=== PATIENT | male | born 1955 | race Caucasian/White ===

== ENCOUNTER 2017-07-05 13:04 | Day surgery (SDC) | payer BC ==
[~2017-07-05] VITALS: Ht 180.3 cm; Wt 101.2 kg
[~2017-07-05 13:04] MED LIST: VARE1TAB22 PO
[2017-07-05] MEDS ORDERED: LACTATED RINGERS 1,000 ML IV ONE (13:07)
[2017-07-05] MEDS ORDERED: LACTATED RINGERS 1,000 ML IV STA (13:12)
[2017-07-05 13:34] VITALS: BP 133/95
[2017-07-05] MEDS ORDERED: LIDOCAINE PF 2% 5 ML (XYLOCAINE) VIAL ONE (14:07)
[2017-07-05] MEDS ORDERED: PROPOFOL INJECTION 50 ML IV ONE (14:07)
--- NOTE | 2017-07-05 14:34 | Progress Note-Pre Operative ---
Pre-Operative Progress Note H&P Reviewed The H&P was reviewed, patient examined and no changes noted. Date Seen by Provider: Jul 05, 2017 Time Seen by Provider: 14:34 Date H&P Reviewed: Jul 05, 2017 Time H&P Reviewed: 14:34 Pre-Operative Diagnosis: screening colonoscopy DADA PHAM DO Jul 05, 2017 14:34
[2017-07-05] MEDS ORDERED: proPOfol 200 MG/20 ML (DIPRIVAN) VIAL IV ONE (14:40)
--- NOTE | 2017-07-05 15:19 | Progress Note-Post Operative ---
Post-Operative Progess Note Surgeon (s)/Mud Car Worker (s) Surgeon DADA PHAM DO Mud Car Worker: na Pre-Operative Diagnosis screening colonoscopy Post-Operative Diagnosis diverticulosis, sigmoid polyp x 2, rectal polyp x 1 Procedure & Operative Findings Date of Procedure 07/05/17 Procedure Performed/Findings colonoscopy with hot bx x 2 sigmoid and rectal x 1 Anesthesia Type per gas or water meter installer Estimated Blood Loss Estimated blood loss (mL): none Specimens/Packing Specimens Removed sigmoid x 2, rectal x1 DADA PHAM DO Jul 05, 2017 3:19 pm
[2017-07-05 15:20] VITALS: BP 123/82
--- NOTE | 2017-07-05 15:20 | Discharge Inst-Simple/Standard ---
Discharge Inst-Standard Patient Instructions/Follow Up Plan of Care/Instructions/FU: 2 weeks Messi Activity as Tolerated: Yes Discharge Diet: Regular Diet (high fiber) DADA PHAM DO Jul 05, 2017 3:20 pm
[2017-07-05 15:50] VITALS: BP 116/66
--- NOTE | 2017-07-06 00:53 | OPERATIVE REPORT ---
DATE OF SERVICE: 07/05/2017 PREOPERATIVE DIAGNOSIS: Screening colonoscopy. POSTOPERATIVE DIAGNOSES: Rectal polyp x1, sigmoid polyp x2 and diverticulosis. PROCEDURE: Colonoscopy with hot biopsy polypectomy x3. SURGEON: Dada Swenson DO ANESTHESIA: Per LOCKET MAKER. ESTIMATED BLOOD LOSS: None. COMPLICATIONS: None. INDICATIONS FOR PROCEDURE: The patient is a 61-year-old male needing screening colonoscopy. He understands risks and benefits of procedure and wished to proceed with the procedure. Consent was signed in the chart. DESCRIPTION OF PROCEDURE: The patient was taken to the endoscopy suite, placed in the left lateral recumbent position. Timeout was performed. Digital rectal exam was performed and there were no palpable polyps, masses or ulcerations. The scope was inserted into the rectum and advanced all the way to the cecum with minimal difficulty. Prep was adequate with irrigation and suction. The scope was then slowly retracted back. There were no polyps, masses or ulcerations within the cecum, ascending, transverse and descending colon. In the sigmoid colon, there was a moderate amount of diverticulosis present. There were 2 polyps, one slightly larger, close to 1 cm in size; this was biopsied and cauterized. The second polyp was right by it, which again hot biopsy polypectomy was performed. Scope was continued to be slowly retracted back into the rectum where it was also retroflexed noting a small polyp in the rectum, which hot biopsy polypectomy was performed. Scope was returned to its normal position, slowly withdrawn until completely removed. The patient tolerated procedure well without any complications. RECOMMENDATIONS: The patient recommended a high-fiber diet. The patient will need a repeat colonoscopy in 3 years to reevaluate. If he has any problems prior to that, he should be reevaluated at that time. The patient will follow up in 2 weeks in the office to discuss pathology results. Job ID: [id number] DocumentID: [id number] Dictated Date: 07/05/2017 15:23:16 Tectonophysicist Date: 07/06/2017 00:14:56 Dictated By: DADA SWENSON DO
== END 2017-07-05 15:55 | disposition home or self-care (01) ==
LOC: ENDO 13:04
PROVIDERS: ATTEND Surgery
DX: Z12.11 Encounter for screening for malignant neoplasm of colon (principal); D12.5 Benign neoplasm of sigmoid colon; K62.1 Rectal polyp; K57.30 Diverticulosis of large intestine without perforation or abscess without bleeding; F17.210 Nicotine dependence, cigarettes, uncomplicated; J43.8 Other emphysema; E66.9 Obesity, unspecified; Z68.31 Body mass index [BMI] 31.0-31.9, adult; Z79.899 Other long term (current) drug therapy
CPT/HCPCS: 88305

== ENCOUNTER 2017-11-13 19:01 | Emergency (ER) | payer BC ==
[~2017-11-13] VITALS: Ht 180.3 cm; Wt 101.2 kg
--- NOTE | 2017-11-13 20:08 | ED Chest Pain ---
General Chief Complaint: Chest Wall/Rib Pain Stated Complaint: COUGHING,CHEST PAIN Nursing Triage Note: patient reports working on his ceiling today then about 1400 having chest pain that is worse with stretching and taking a deep breathe Nursing Sepsis Screen: No Definite Risk Source: patient, family ( and daughter) Exam Limitations: no limitations History of Present Illness Date Seen by Provider: Nov 13, 2017 Time Seen by Provider: 19:57 Initial Comments Patient presents to the ER by private conveyance with a chief complaint he's been having chest pain started sometime this afternoon. Today he's been working overhead on a ceiling doing some vomiting. He says the repetitive exercise re- creates the pain. Raising his arms above his head re-creates her pain and he feels the pain when he pushes on his chest. The pain is located around the manubrium and bilaterally. It does not radiate anywhere he did not express any nausea sweats chills or numbness in his jaw. He does not have a history of primary coronary artery disease. Does not have any significant family history of coronary artery disease. He does not have diabetes, high blood pressure, hypercholesterolemia, hypothyroidism but he does smoke not every day but usually on average a pack a day. He has been following with his primary care doctor recently to have a CT scan of his chest looking at a nodule that was seen on chest x-ray months ago for surveillance but does not know the results of that yet. Chest pain and that she really started at about 2:00 this afternoon and has not really changed in character. Allergies and Home Medications Allergies Coded Allergies: No Known Drug Allergies (Unverified , 06/21/17) Home Medications Varenicline Tartrate 1 Mg Tablet, 1 MG PO DAILY, (Reported) Patient Home Medication List Home Medication List Reviewed: Yes Review of Systems Constitutional: No chills, No diaphoresis EENTM: No Ear Pain, No Mouth Pain Respiratory: Denies Cough, Denies Shortness of Air Cardiovascular: See HPI, Chest Pain, Denies Edema, Denies Syncope Gastrointestinal: Denies Constipated, Denies Diarrhea, Denies Nausea Genitourinary: Denies Burning, Denies Discharge Musculoskeletal: No back pain, No joint pain Skin: No pruritus, No rash Psychiatric/Neurological: Denies Headache, Denies Numbness Past Khrdhia-Syhisy-Wrnkpm Hx Patient Social History Alcohol Use: Denies Use Number of Drinks Today: AA Alcohol Beverage of Choice: Beer Recreational Drug Use: No Smoking Status: Former Smoker Type Used: Cigarettes Recent Foreign Travel: No Contact w/Someone Who Travel: No Recent Infectious Disease Expo: No Recent Hopitalizations: No Physical Abuse: No Sexual Abuse: No Immunizations Up To Date Tetanus Booster (TDap): Unknown PED Vaccines UTD: No Seasonal Allergies Seasonal Allergies: No Respiratory Respiratory Disorders: COPD Currently Using CPAP: No Currently Using BIPAP: No Reproductive System Hx Reproductive Disorders: No Sexually Transmitted Disease: No HIV/AIDS: No HEENT Loss of Vision: Denies Hearing Impairment: Denies Psychosocial Suicide Risk Score: 0 Physical Exam Vital Signs Vital Signs - First Documented 11/13/17 19:49 Pulse 78 Resp 18 B/P (MAP) 137/97 (110) Pulse Ox 92 O2 Delivery Room Air Capillary Refill : Less Than 3 Seconds General Appearance: No Apparent Distress, WD/WN HEENT: PERRL/EOMI, Normal ENT Inspection, Pharynx Normal Neck: Full Range of Motion, Non Tender, Supple Respiratory: Lungs Clear, Normal Breath Sounds, No Accessory Muscle Use, No Respiratory Distress, Other (chest pain reproducible by direct palpation over the anterior ribs and manubrium.) Cardiovascular: Regular Rate, Rhythm, No Edema, No Murmur, Normal Peripheral Pulses Gastrointestinal: Normal Bowel Sounds, Non Tender, Soft Neurologic/Psychiatric: Alert, Oriented x3 Skin: Normal Color, Warm/Dry Progress/Results/Core Measures Results/Orders Lab Results Laboratory Tests Test 11/13/17 20:22 Range/Units White Blood Count 7.8 4.3-11.0 10^3/uL Red Blood Count 5.04 4.35-5.85 10^6/uL Hemoglobin 15.3 13.3-17.7 G/DL Hematocrit 44 40-54 % Mean Corpuscular Volume 87 80-99 FL Mean Corpuscular Hemoglobin 30 25-34 PG Mean Corpuscular Hemoglobin Concent 35 32-36 G/DL Red Cell Distribution Width 13.3 10.0-14.5 % Platelet Count 248 130-400 10^3/uL Mean Platelet Volume 10.1 7.4-10.4 FL Neutrophils (%) (Auto) 53 42-75 % Lymphocytes (%) (Auto) 33 12-44 % Monocytes (%) (Auto) 10 0-12 % Eosinophils (%) (Auto) 4 0-10 % Basophils (%) (Auto) 1 0-10 % Neutrophils # (Auto) 4.1 1.8-7.8 X 10^3 Lymphocytes # (Auto) 2.6 1.0-4.0 X 10^3 Monocytes # (Auto) 0.8 0.0-1.0 X 10^3 Eosinophils # (Auto) 0.3 0.0-0.3 10^3/uL Basophils # (Auto) 0.1 0.0-0.1 10^3/uL Prothrombin Time 12.2 12.2-14.7 SEC INR Comment 0.9 0.8-1.4 Activated Partial Thromboplast Time 29 24-35 SEC Sodium Level 141 135-145 MMOL/L Potassium Level 3.8 3.6-5.0 MMOL/L Chloride Level 108 H 98-107 MMOL/L Carbon Dioxide Level 22 21-32 MMOL/L Anion Gap 11 5-14 MMOL/L Blood Urea Nitrogen 14 7-18 MG/DL Creatinine 0.81 0.60-1.30 MG/DL Estimat Glomerular Filtration Rate > 60 BUN/Creatinine Ratio 17 Glucose Level 162 H 70-105 MG/DL Calcium Level 8.9 8.5-10.1 MG/DL Magnesium Level 2.4 1.8-2.4 MG/DL Total Bilirubin 0.2 0.1-1.0 MG/DL Aspartate Amino Transf (AST/SGOT) 17 5-34 U/L Alanine Aminotransferase (ALT/SGPT) 23 0-55 U/L Alkaline Phosphatase 93 40-136 U/L Myoglobin 36.6 10.0-92.0 NG/ML Troponin I < 0.30 <0.30 NG/ML Total Protein 7.0 6.4-8.2 GM/DL Albumin 4.0 3.2-4.5 GM/DL My Orders Orders - LI,ALVIN J Cbc With Automated Diff (11/13/17 20:02) Magnesium (11/13/17 20:02) Ekg Tracing (11/13/17 20:02) Cardiac Profile 1 (11/13/17 20:02) Comprehensive Metabolic Panel (11/13/17 20:02) Myoglobin Serum (11/13/17 20:02) Protime With Inr (11/13/17 20:02) Partial Thromboplastin Time (11/13/17 20:02) O2 (11/13/17 20:02) Monitor-Rhythm Ecg Trace Only (11/13/17 20:02) Lipid Panel (11/14/17 06:00) Aspirin Chewable Tablet (Baby Aspirin Ch (11/13/17 20:15) Saline Lock/Iv-Start (11/13/17 20:02) Chest Pa/Lat (2 View) (11/13/17 20:02) Medications Given in ED Current Medications Medications Dose Ordered Sig/Tristen Route Start Time Stop Time Status Last Admin Dose Admin Aspirin 324 mg ONCE ONCE PO 11/13/17 20:15 11/13/17 20:16 DC 11/13/17 20:53 324 MG Vital Signs/I&O Vital Sign - Last 12Hours 11/13/17 11/13/17 19:49 19:49 Pulse 78 Resp 18 B/P (MAP) 137/97 (110) Pulse Ox 92 O2 Delivery Room Air Blood Pressure Mean: 110 Progress Note : Time: 20:07 Progress Note Appears to be musculoskeletal. Because of his age we'll give him some aspirin and do a chest pain workup review the results with cardiology and given a plan. If there is no evidence of acute IL we'll give him NSAIDs for his chest wall pain. ECG Initial ECG Impression Date: Nov 13, 2017 Initial ECG Impression Time: 19:51 Initial ECG Rate: 66 Initial ECG Rhythm: Normal Sinus Initial ECG Intervals: Normal Initial ECG Impression: Normal, Nonspecific Changes Initial ECG Comparisson: No Previous ECG Available Comment No ST segment elevation or depression. Diagnostic Imaging Diagonstic Imaging: Xray (2v) Plain Films/CT/US/NM/MRI: chest Comments VIA [facility]. [place], [place] NAME: MUSA TREVIÑO [facility] REC#: [id number] PT STATUS: REG ER : 1955 PHYSICIAN: ALVIN JEFFERSON MD ADMIT DATE: 11/13/17/ER Draft Date of Exam:11/13/17 CHEST PA/LAT (2 VIEW) EXAM: CHEST PA/LAT (2 VIEW) INDICATION: Chest pain. COMPARISON: None. FINDINGS: Normal heart size and pulmonary vascularity. Mild linear atelectasis or scarring in the lung bases. No dense consolidation, pleural effusion or pneumothorax. No acute osseous findings. IMPRESSION: Minimal atelectasis and/or scarring in the lung bases. Chest otherwise unremarkable. Dictated on workstation # [id number] Dict: 11/13/172029 Trans: 11/13/172032 [id number] Interpreted by: ESPERANZA TAYLOR MD Electronically signed by: Reviewed: Reviewed by Me Consults Consults : Consulting Physician: JANET FREEMAN MD [facility] Consults Notes Discussed case lab imaging EKG and findings. With the given history and workup so far he is willing to see the patient in the clinic tomorrow or Tuesday. Departure Impression Impression: Primary Impression: Acute chest wall pain Disposition: HOME, SELF-CARE Condition: Stable Departure-Patient Inst. Decision time for Depature: 21:19 Referrals: SARAH LEIGH MD (PCP) Primary Care Physician Patient Instructions: Chest Pain That Is Not Caused by the Heart (DC) Add. Discharge Instructions: Your initial workup does not show evidence of a heart attack. I would recommend you use ibuprofen 800 mg every 8 hours as needed for your chest wall discomfort. Follow-up with Dr. Barone by calling his office at [phone] tomorrow morning and requests an appointment tomorrow or the following day. He will help you make sure you're heart is okay in the clinic. If you have new or worrisome symptoms return to the ER. All discharge instructions reviewed with patient and/ or family. Voiced understanding. Copy Copies To 1: JANET FREEMAN MD [facility]; SARAH LEIGH MD, TITUS J Nov 13, 2017 20:08
[2017-11-13] MEDS ORDERED: ASPIRIN 81 MG CHEW (CHILDREN'S ASA) PO ONE (20:15)
[2017-11-13 20:30] LABS: BASOPHILS # (AUTO) 0.1 10^3/uL (0.0-0.1); BASOPHILS % (AUTO) 1 % (0-10); EOSINOPHILS # (AUTO) 0.3 10^3/uL (0.0-0.3); EOSINOPHILS % (AUTO) 4 % (0-10); HEMATOCRIT 44 % (40-54); HEMOGLOBIN 15.3 G/DL (13.3-17.7); LYMPHOCYTES # (AUTO) 2.6 X 10^3 (1.0-4.0); LYMPHOCYTES % (AUTO) 33 % (12-44); MEAN CORPUSCULAR HEMOGLOBIN 30 PG (25-34); MEAN CORPUSCULAR HGB CONC 35 G/DL (32-36); MEAN CORPUSCULAR VOLUME 87 FL (80-99); MEAN PLATELET VOLUME 10.1 FL (7.4-10.4); MONOCYTES # (AUTO) 0.8 X 10^3 (0.0-1.0); MONOCYTES % (AUTO) 10 % (0-12); NEUTROPHILS # (AUTO) 4.1 X 10^3 (1.8-7.8); NEUTROPHILS % (AUTO) 53 % (42-75); PLATELET COUNT 248 10^3/uL (130-400); RED BLOOD COUNT 5.04 10^6/uL (4.35-5.85); RED CELL DISTRIBUTION WIDTH 13.3 % (10.0-14.5); WHITE BLOOD COUNT 7.8 10^3/uL (4.3-11.0)
--- NOTE | 2017-11-13 20:34 | Diagnostic Imaging Report ---
EXAM: CHEST PA/LAT (2 VIEW) INDICATION: Chest pain. COMPARISON: None. FINDINGS: Normal heart size and pulmonary vascularity. Mild linear atelectasis or scarring in the lung bases. No dense consolidation, pleural effusion or pneumothorax. No acute osseous findings. IMPRESSION: Minimal atelectasis and/or scarring in the lung bases. Chest otherwise unremarkable. Dictated by: Dictated on workstation # [id number]
[2017-11-13 20:41] LABS: INR 0.9 (0.8-1.4); PROTHROMBIN TIME PATIENT 12.2 SEC (12.2-14.7)
[2017-11-13 20:51] LABS: ALANINE AMINOTRANSFERASE 23 U/L (0-55); ALKALINE PHOSPHATASE 93 U/L (40-136); BILIRUBIN,TOTAL 0.2 MG/DL (0.1-1.0); BUN/CREATININE RATIO 17; CALCIUM 8.9 MG/DL (8.5-10.1); CARBON DIOXIDE 22 MMOL/L (21-32); CHLORIDE 108 MMOL/L (98-107); CREATININE SERUM 0.81 MG/DL (0.60-1.30); GFR ESTIMATED > 60; GLUCOSE 162 MG/DL (70-105); MAGNESIUM 2.4 MG/DL (1.8-2.4); POTASSIUM 3.8 MMOL/L (3.6-5.0); SODIUM 141 MMOL/L (135-145)
[2017-11-13 20:58] LABS: MYOGLOBIN SERUM 36.6 NG/ML (10.0-92.0)
[2017-11-13 21:26] VITALS: BP 133/84
== END 2017-11-13 21:26 | disposition home or self-care (01) ==
LOC: EDUNIT# 19:01 → ER 19:03
DX: R07.89 Other chest pain (principal); J44.9 Chronic obstructive pulmonary disease, unspecified; Z87.891 Personal history of nicotine dependence
CPT/HCPCS: 36415; 71046; 80053; 83735; 83874; 84484; 85025; 85610; 85730; 93005; 93041

== ENCOUNTER → 2017-11-29 | Outpatient (CLI) | payer BC ==
[~2017-11-29] VITALS: Ht 180.3 cm; Wt 102.1 kg
[~2017-11-29] MED LIST changes: +CATHETER FLUSH 10 ML SYR IV PRN; +REGADENOSON 0.4 MG/5 ML SYR (LEXISCAN) IV ONE
[2017-11-29 10:05] VITALS: BP 134/81
[2017-11-29 10:08] VITALS: BP 138/94
--- NOTE | 2017-11-29 18:45 | STRESS TEST ---
DATE OF SERVICE: 11/29/2017 RESTING AND POST REGADENOSON TECHNETIUM-99M TETROFOSMIN SPECT CT IMAGING CLINICAL DIAGNOSIS: Chest discomfort. Baseline images were carried out after injection of 10.72 mCi technetium-99m Tetrofosmin. This was followed by 0.4 mg regadenoson and 31.5 mCi of technetium-99m Tetrofosmin for stress imaging. The electrocardiogram showed sinus rhythm at baseline and it did not change significantly with the regadenoson infusion. The patient noted some nausea and shortness of breath following regadenoson infusion, which resolved in a few minutes. Review of images at rest and following stress does not indicate any significant perfusion defects consistent with significant myocardial ischemia or infarction. Some degree of diaphragmatic attenuation is seen both at rest and following regadenoson infusion. Gated images show normal global left ventricular systolic function with normal regional wall motion, including the diaphragmatic wall of the left ventricle. Left ventricular ejection fraction is calculated to be 75%. Left ventricular end diastolic volume is 78 mL. TID is absent (1.06). CONCLUSIONS: 1. No evidence of any significant myocardial ischemia or infarction on this study. 2. Normal regional wall motion. 3. Normal global left ventricular systolic function with a calculated ejection fraction of 75%. 4. Normal left ventricular cavity size. Job ID: [id number] DocumentID: [id number] Dictated Date: 11/29/2017 17:20:57 Clinical Reimbursement Specialist Date: 11/29/2017 18:44:50 Dictated By: JANET FREEMAN MD, MA, FACP, FACC,
== END ==
LOC: CARD 11-22 07:30
PROVIDERS: ATTEND Internal Medicine Cardiovascular Disease
DX: R07.89 Other chest pain (principal); R06.02 Shortness of breath; E66.9 Obesity, unspecified; Z72.0 Tobacco use
CPT/HCPCS: 78452; 93017

== ENCOUNTER → 2017-12-14 | Outpatient (CLI) | payer BC ==
[~2017-12-14] MED LIST changes: -CATHETER FLUSH 10 ML SYR IV PRN; -REGADENOSON 0.4 MG/5 ML SYR (LEXISCAN) IV ONE
== END ==
LOC: CARD 11:16
PROVIDERS: ATTEND Internal Medicine Cardiovascular Disease
DX: R07.89 Other chest pain (principal); R06.02 Shortness of breath; E66.9 Obesity, unspecified; Z72.0 Tobacco use
CPT/HCPCS: 93306

== ENCOUNTER → 2019-01-29 | Outpatient (CLI) | payer OTHER ==
--- NOTE | 2019-01-29 14:48 | Diagnostic Imaging Report ---
CT CHEST SCREENING WO TECHNIQUE: Low-dose unenhanced CT of the chest was performed according to the screening protocol. Coronal MIP and sagittal MPR reformats are created. Automatic exposure controls were utilized to keep dose as low as reasonably achievable. INDICATION: 63-year-old current smoker with [id number] history of smoking. COMPARISON: None available. FINDINGS: Pulmonary findings: No endoluminal nodule within the trachea. No pulmonary mass or consolidation. 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 No indeterminate pulmonary nodules that would require further management at this time. Extrapulmonary findings: No axillary lymphadenopathy. No mediastinal, discrete hilar or juxtaphrenic lymphadenopathy. 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 Coronary artery calcifications are present. IMPRESSION: No worrisome focal osseous lesion. Lung-RADS category: 1 - Negative Recommendations: Continued annual screening with low-dose CT in 12 months. Dictated by: Dictated on workstation # [id number]
== END ==
LOC: RAD 12:45
PROVIDERS: ATTEND Family Medicine
DX: Z12.2 Encounter for screening for malignant neoplasm of respiratory organs (principal); F17.210 Nicotine dependence, cigarettes, uncomplicated

== ENCOUNTER 2020-02-21 20:32 | Emergency (ER) | payer OTHER ==
[~2020-02-21] VITALS: Ht 178 cm; Wt 99.1 kg
[2020-02-21] MEDS ORDERED: LIDOCAINE 1% INJ 20 ML 20 ML VIAL ONE (20:46)
--- NOTE | 2020-02-21 21:30 | ED Upper Extremity ---
General Chief Complaint: Laceration Stated Complaint: L HAND 5TH FINGER LAC Nursing Triage Note: laceration to left 3rd, 5th finger. Nursing Sepsis Screen: No Definite Risk Source: patient Exam Limitations: no limitations History of Present Illness Date Seen by Provider: Feb 21, 2020 Time Seen by Provider: 21:24 Initial Comments Heavy chain fell from a few feet up landing on his left hand prior to arrival. 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 He sustained a laceration to his left fifth and third fingers. Allergies and Home Medications Allergies Coded Allergies: No Known Drug Allergies (Unverified , 06/21/17) Home Medications Cephalexin 500 Mg Capsule, 500 MG PO TID Prescribed by: YENNY BEATTY on 02/21/202131 Patient Home Medication List Home Medication List Reviewed: Yes Review of Systems Constitutional: no symptoms reported Musculoskeletal: see HPI Skin: see HPI Past Igikumc-Wwwuca-Xyqqjh Hx Patient Social History Alcohol Use: Occasionally Uses Number of Drinks Today: AA Alcohol Beverage of Choice: Beer Recreational Drug Use: No Smoking Status: Current Everyday Smoker Type Used: Cigarettes 2nd Hand Smoke Exposure: Yes Recent Foreign Travel: No Contact w/Someone Who Travel: No Recent Infectious Disease Expo: No Recent Hopitalizations: No Physical Abuse: No Sexual Abuse: No Mistreated: No Fear: No Immunizations Up To Date Tetanus Booster (TDap): Less than 5yrs PED Vaccines UTD: No Seasonal Allergies Seasonal Allergies: No Past Medical History Surgeries: Yes (cyst removed from finger) Respiratory: Yes COPD Currently Using CPAP: No Currently Using BIPAP: No Cardiac: No Neurological: No Reproductive Disorders: No Sexually Transmitted Disease: No HIV/AIDS: No Genitourinary: No Gastrointestinal: No Musculoskeletal: No Endocrine: No HEENT: No Loss of Vision: Denies Hearing Impairment: Denies Cancer: No Psychosocial: No Integumentary: No Blood Disorders: No Physical Exam Vital Signs Vital Signs - First Documented 02/21/20 20:39 Temp 36.7 Pulse 91 Resp 18 B/P (MAP) 145/97 (113) Pulse Ox 94 O2 Delivery Room Air Capillary Refill : Less Than 3 Seconds Height, Weight, BMI Height: 5'11.00" Weight: 225lbs. 0.0oz. 102.067980xx; 31.00 BMI Method:Stated General Appearance: WD/WN, no apparent distress Cardiovascular: regular rate, rhythm Respiratory: decreased breath sounds Hand: laceration (there is a 20 laceration across the dorsum of his left third middle phalanx. There is a larger (3.5 cm) laceration along the lateral aspect of the distal phalanx of the left fifth finger this extends to the nail and the nail was avulsed from the nail bed.) Procedures/Interventions Wound Location: Upper Extremities Other Wound Location Left fifth finger Wound Length (cm): 3.5 Wound's Depth, Shape: nail-avulsed, sub Q Anesthesia: 1% Lidocaine Volume Anesthetic (ccs): 8 Wound Debrided: minimal Suture: Ethlion Suture Size: 5-0 Number of Sutures: 5 Progress Proximal nail was secured under the eponychium with 5-0 nylon horizontal mattress suture.. The rest of the laceration was closed with 5-0 nylon simple interrupted. Patient refused suturing of his middle finger. He says he would take a Band- Aid. He understands that there is risk for infection and delayed healing. He still refused to have it done. Progress/Results/Core Measures Results/Orders My Orders Orders - YENNY BEATTY MD Finger(S) (02/21/20 21:22) Cephalexin Capsule (Keflex Capsule) (02/21/20 21:45) Wound Dressing-Ed (02/21/20 21:38) Medications Given in ED Current Medications Medications Dose Ordered Sig/Tristen Route Start Time Stop Time Status Last Admin Dose Admin Lidocaine HCl 20 ml STK-MED ONCE .ROUTE 02/21/20 20:46 02/21/20 20:49 DC 02/21/20 20:51 20 ML Vital Signs/I&O 02/21/20 20:39 Temp 36.7 Pulse 91 Resp 18 B/P (MAP) 145/97 (113) Pulse Ox 94 O2 Delivery Room Air Blood Pressure Mean: 113 Progress Progress Note : Time: 21:35 Progress Note X-ray shows fracture of the tip of the distal phalanx. This is an open fracture. He was given Keflex and written a prescription for Keflex. Wound was cleaned out well with soap and water. Finger was dressed and splinted. Departure Impression Primary Impression: Laceration of finger of left hand without foreign body with damage to nail Disposition: 01 HOME, SELF-CARE Condition: Stable Departure-Patient Inst. Decision time for Depature: 21:43 Referrals: SARAH LEIGH MD (PCP/Family) Primary Care Physician Patient Instructions: Laceration Repair With Stitches (DC) Add. Discharge Instructions: Keep hand elevated. Daily dressing changes. Sutures out in 14 days. Take antibiotics as prescribed. All discharge instructions reviewed with patient and/or family. Voiced understanding. Scripts Cephalexin (Keflex) 500 Mg Capsule 500 MG PO TID, #6 CAP Prov: YENNY BEATTY MD 02/21/20 YENNY BEATTY MD Feb 21, 2020 21:30
[2020-02-21] MEDS ORDERED: CEPH-507 PO (21:32)
[2020-02-21] MEDS ORDERED: CEPHALEXIN 250 MG (KEFLEX) CAP PO ONE (21:45)
[2020-02-21 21:52] VITALS: BP 139/80
--- NOTE | 2020-02-21 21:53 | Diagnostic Imaging Report ---
INDICATION: Lacerations. COMPARISON: None. TECHNIQUE: Three radiographs of the left hand dated February 21, 2020. FINDINGS: Acute fracturing involving the tuft of the 5th digit distal phalanx is present. Fracture is not significantly displaced. No additional acute fracture. No dislocation. No suspicious radiopaque foreign body. Mild scattered degenerative changes. Carpal alignment is well maintained. IMPRESSION: 1. Acute transversely oriented essentially non-displaced fracture involving the tuft of the 5th digit distal phalanx. 2. Mild scattered degenerative changes. Dictated by: Dictated on workstation # [id number]
--- OUTSIDE RECORDS SUMMARY | 2020-02-21 22:03 | XMS REPORT | Continuity of Care Document ---
Author Organization Unknown Address Unknown Phone Unavailable Allergies Active Description Code Type Severity Reaction Onset Reported/Identified Relationship to Patient Clinical Status Yes No Known Drug Allergies [id number] Drug Allergy Unknown N/A 06/21/2017 Medications There is no data. Problems Date Dx Coded Attending Type Code Diagnosis Diagnosed By 06/21/2017 DADA PHAM DO Ot Z01.818 ENCOUNTER FOR OTHER PREPROCEDURAL EXAMIN 06/21/2017 DADA PHAM DO Ot Z12. 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 9 OBESITY, UNSPECIFIED 07/05/2017 DADA PHAM DO Ot F17.210 NICOTINE DEPENDENCE, CIGARETTES, UNCOMPL 07/05/2017 DADA PHAM DO Ot J43. 8 OTHER EMPHYSEMA 07/05/2017 DADA PHAM DO Ot K57. 30 DVRTCLOS OF LG INT W/O PERFORATION OR AB 07/05/2017 DADA PHAM DO Ot K62. 1 RECTAL POLYP 07/05/2017 DADA PHAM DO Ot Z12. 11 ENCOUNTER FOR SCREENING FOR MALIGNANT NE 07/05/2017 DADA PHAM DO Ot Z68. 31 BODY MASS INDEX (BMI) 31.0-31.9, ADULT 07/05/2017 DADA PHAM DO Ot Z79.899 OTHER ASSISTED (CURRENT) DRUG THERAPY 07/18/2017 DADA PHAM DO Ot D12. 5 BENIGN NEOPLASM OF SIGMOID COLON 07/18/2017 DADA PHAM DO Ot E66. 9 OBESITY, UNSPECIFIED 07/18/2017 DADA PHAM DO Ot F17.210 NICOTINE DEPENDENCE, CIGARETTES, UNCOMPL 07/18/2017 DADA PHAM DO Ot J43. 8 OTHER EMPHYSEMA 07/18/2017 DADA PHAM DO Ot K57. 30 DVRTCLOS OF LG INT W/O PERFORATION OR AB 07/18/2017 DADA PHAM DO Ot K62. 1 RECTAL POLYP 07/18/2017 DADA PHAM DO Ot Z12. 11 ENCOUNTER FOR SCREENING FOR MALIGNANT NE 07/18/2017 DADA PHAM DO Ot Z68. 31 BODY MASS INDEX (BMI) 31.0-31.9, ADULT 07/18/2017 DADA PHAM DO Ot Z79.899 OTHER ASSISTED (CURRENT) DRUG THERAPY 11/13/2017 ABRAHAM JEFFERSON MDUS J Ot J44. 9 CHRONIC OBSTRUCTIVE PULMONARY DISEASE, U 11/13/2017 LI RIOS ALVIN J Ot R07. 89 OTHER CHEST PAIN 11/13/2017 ABRAHAM JEFFERSON MDUS J Ot Z87.891 PERSONAL HISTORY OF NICOTINE DEPENDENCE 11/15/2017 ALVIN JEFFERSON MD J Ot J44. 9 CHRONIC OBSTRUCTIVE PULMONARY DISEASE, U 11/15/2017 ABRAHAM JEFFERSON MDUS J Ot R07. 89 OTHER CHEST PAIN 11/15/2017 ABRAHAM JEFFERSON MDUS J Ot Z87.891 PERSONAL HISTORY OF NICOTINE DEPENDENCE 11/30/2017 PETE RIOS FACC, ALI FACP CCDS Ot E66.9 OBESITY, UNSPECIFIED 11/30/2017 PETE RIOS FACC, ALI FACP CCDS Ot R06.02 SHORTNESS OF BREATH 11/30/2017 PETE RIOS FACC, ALI FACP CCDS Ot R07.89 OTHER CHEST PAIN 11/30/2017 PETE RIOS FACC, ALI FACP CCDS Ot Z72.0 TOBACCO USE 12/14/2017 PETE RIOS FACC, ALI FACP CCDS Ot E66.9 OBESITY, UNSPECIFIED 12/14/2017 PETE RIOS FACC, ALI FACP CCDS Ot R06.02 SHORTNESS OF BREATH 12/14/2017 PETE RIOS FACC, ALI FACP CCDS Ot R07.89 OTHER CHEST PAIN 12/14/2017 PETE RIOS FACC, ALI FACP CCDS Ot Z72.0 TOBACCO USE 12/14/2017 PETE RIOS FACC, ALI FACP CCDS Ot E66.9 OBESITY, UNSPECIFIED 12/14/2017 PETE RIOS FACC, ALI FACP CCDS Ot R06.02 SHORTNESS OF BREATH 12/14/2017 PETE MD FACC, ALI FACP CCDS Ot R07.89 OTHER CHEST PAIN 12/14/2017 PETE RIOS FACC, ALI FACP CCDS Ot Z72.0 TOBACCO USE 12/15/2017 PETE RIOS FACC, ALI FACP CCDS Ot E66.9 OBESITY, UNSPECIFIED 12/15/2017 PETE RIOS FACC, ALI FACP CCDS Ot R06.02 SHORTNESS OF BREATH 12/15/2017 PETE RIOS FACC, ALI FACP CCDS Ot R07.89 OTHER CHEST PAIN 12/15/2017 PETE RIOS FACC, ALI FACP CCDS Ot Z72.0 TOBACCO USE 01/26/2018 PETE RIOS FACC, ALI FACP CCDS Ot E66.9 OBESITY, UNSPECIFIED 01/26/2018 PETE RIOS FACC, ALI FACP CCDS Ot R06.02 SHORTNESS OF BREATH 01/26/2018 PETE RIOS FACC, ALI FACP CCDS Ot R07.89 OTHER CHEST PAIN 01/26/2018 PETE RIOS FACC, ALI FACP CCDS Ot Z72.0 TOBACCO USE 01/26/2018 PETE RIOS FACC, ALI FACP CCDS Ot E66.9 OBESITY, UNSPECIFIED 01/26/2018 PETE RIOS FACC, ALI FACP CCDS Ot R06.02 SHORTNESS OF BREATH 01/26/2018 PETE RIOS FACC, ALI FACP CCDS Ot R07.89 OTHER CHEST PAIN 01/26/2018 PETE SILVESTREC, ALI FACP CCDS Ot Z72.0 TOBACCO USE 11/08/2018 PETE SILVESTREC, ALI FACP CCDS Ot E66.9 OBESITY, UNSPECIFIED 11/08/2018 PETE RIOS FACC, ALI FACP CCDS Ot R06.02 SHORTNESS OF BREATH 11/08/2018 PETE RIOS FACC, ALI FACP CCDS Ot R07.89 OTHER CHEST PAIN 11/08/2018 PETE RIOS FACC, ALI FACP CCDS Ot Z72.0 TOBACCO USE 11/08/2018 PETE RIOS FACC, ALI FACP CCDS Ot E66.9 OBESITY, UNSPECIFIED 11/08/2018 PETE RIOS FACC, ALI FACP CCDS Ot R06.02 SHORTNESS OF BREATH 11/08/2018 PETE RIOS FACC, ALI FACP CCDS Ot R07.89 OTHER CHEST PAIN 11/08/2018 PETE MD FACC, ALI FACP CCDS Ot Z72.0 TOBACCO USE 01/29/2019 PETE MD FACC, ALI FACP CCDS Ot E66.9 OBESITY, UNSPECIFIED 01/29/2019 PETE MD FACC, ALI FACP CCDS Ot R06.02 SHORTNESS OF BREATH 01/29/2019 PETE MD FACC, ALI FACP CCDS Ot R07.89 OTHER CHEST PAIN 01/29/2019 PETE MD FACC, ALI FACP CCDS Ot Z72.0 TOBACCO USE 01/29/2019 PETE MD FACC, ALI FACP CCDS Ot E66.9 OBESITY, UNSPECIFIED 01/29/2019 PETE MD FACC, ALI FACP CCDS Ot R06.02 SHORTNESS OF BREATH 01/29/2019 PETE MD FACC, ALI FACP CCDS Ot R07.89 OTHER CHEST PAIN 01/29/2019 PETE MD FACC, ALI FACP CCDS Ot Z72.0 TOBACCO USE 01/31/2019 SARAH LEIGH MD R Ot F17.210 NICOTINE DEPENDENCE, CIGARETTES, UNCOMPL 01/31/2019 SARAH LEIGH MD R Ot Z12. 2 ENCNTR SCREEN FOR MALIGNANT NEOPLASM OF Procedures There is no data. Results Test Result Range Complete blood count (CBC) with automate d white blood cell (WBC) differential - 11/13/17 20:22 Blood leukocytes automated count (number/volume) 7.8 10*3/uL 4.3-11.0 Blood erythrocytes automated count (number/volume) 5.04 10*6/uL 4.35-5.85 Venous blood hemoglobin measurement (mass/volume) 15.3 g/dL 13.3-17.7 Blood hematocrit (volume fraction) 44 % 40-54 Automated erythrocyte mean corpuscular volume 87 [ foz_us] 80-99 Automated erythrocyte mean corpuscular h emoglobin (mass per erythrocyte) 30 pg 25-34 Automated erythrocyte mean corpuscular h emoglobin concentration measurement (mass/volume) 35 g/dL 32-36 Automated erythrocyte distribution width ratio 13. 3 % 10.0- 14.5 Automated blood platelet count (count/volume) 248 10*3/uL 130-400 Automated blood platelet mean volume measurement 10.1 [foz_us] 7.4-10.4 Automated blood neutrophils/100 leukocytes 53 % 42-75 Automated blood lymphocytes/100 leukocytes 33 % 12-44 Blood monocytes/100 leukocytes 10 % 0-12 Automated blood eosinophils/100 leukocytes 4 % 0-10 Automated blood basophils/100 leukocytes 1 % 0-10 Blood neutrophils automated count (number/volume) 4.1 10*3 1.8-7.8 Blood lymphocytes automated count (number/volume) 2.6 10*3 1.0-4.0 Blood monocytes automated count (number/volume) 0. 8 10*3 0.0-1.0 Automated eosinophil count 0.3 10*3/uL 0 .0-0.3 Automated blood basophil count (count/volume) 0.1 10*3/uL 0.0-0.1 PT panel in platelet poor plasma by coag ulation assay - 11/13/17 20:22 Prothrombin time (PT) in platelet poor plasma by coagu lation assay 12.2 s 12.2-14.7 INR in platelet poor plasma or blood by coagulation as say 0.9 0.8-1.4 Activated partial thromboplastin time (a PTT) in platelet poor plasma bycoagulation assay - 11/13/17 20:22 Activated partial thromboplastin time (a PTT) in platelet poor plasma bycoagulation assay 29 s 24-35 Comprehensive metabolic panel - 11/13/17 20:22 Serum or plasma sodium measurement (moles/volume) 141 mmol/L 135-145 Serum or plasma potassium measurement (moles/volume) 3.8 mmol/L 3.6-5.0 Serum or plasma chloride measurement (moles/volume) 108 mmol/L 98-107 Carbon dioxide 22 mmol/L 21-32 Serum or plasma anion gap determination (moles/volume) 11 mmol/L 5-14 Serum or plasma urea nitrogen measurement (mass/volume ) 14 mg/dL 7-18 Serum or plasma creatinine measurement (mass/volume) 0.81 mg/dL 0.60-1.30 Serum or plasma urea nitrogen/creatinine mass ratio 17 NRG Serum or plasma creatinine measurement w ith calculation of estimated glomerular filtration rate > NRG Serum or plasma glucose measurement (mass/volume) 162 mg/dL 70-105 Serum or plasma calcium measurement (mass/volume) 8.9 mg/dL 8.5-10.1 Serum or plasma total bilirubin measurement (mass/volu me) 0.2 mg/dL 0.1-1.0 Serum or plasma alkaline phosphatase sofi surement (enzymatic activity/volume) 93 U/L 40-136 Serum or plasma aspartate aminotransfera se measurement (enzymatic activity/volume) 17 U/L 5-34 Serum or plasma alanine aminotransferase measurement (enzymatic activity/volume) 23 U/L 0-55 Serum or plasma protein measurement (mass/volume) 7.0 g/dL 6.4-8.2 Serum or plasma albumin measurement (mass/volume) 4.0 g/dL 3.2-4.5 Magnesium - 11/13/17 20:22 Magnesium 2.4 mg/dL 1.8-2.4 Serum or plasma troponin i.cardiac measu rement (mass/volume) - 11/13/17 20:22 Serum or plasma troponin i.cardiac measurement (mass/v olume) < ng/mL <0.30 Myoglobin, serum - 11/13/17 20:22 Myoglobin, serum 36.6 ng/mL 10.0-92.0 Encounters ACCT No. Visit Date/Time Discharge Status Pt. Type Provider Facility Loc./Unit Complaint [id number] 08/02/2019 20:00:00 23:59:59 CLS SARAH Guerra MD [facility] SLEEP CENTRAL SLEEP APNEA [id number] 01/29/2019 12:45:00 23:59:59 CLS Outpatient SARAH LEIGH MD [facility] RAD ANNUAL LUNG SCREENING [id number] 11/08/2018 12:10:00 23:59:59 CLS Preadmit SARAH LEIGH MD [facility] RAD SOB [id number] 12/14/2017 11:16:00 23:59:59 CLS Outpatient JANET FREEMAN MD, FACC, FACP CC DS [facility] CARD CHEST DISCO MFORT [id number] 11/29/2017 07:38:00 23:59:59 CLS Outpatient JANET FREEMAN MD, FACC, FACP CC DS [facility] CARD CHEST DISCO MFORT [id number] 11/13/2017 19:03:00 018 21:26:00 DIS Emergency LI RIOS, ALVIN Payton [facility] ER COUGHING,CHEST PAIN [id number] 07/05/2017 13:04:00 017 15:55:00 DIS Outpatient PHAM DADA FIGUEREDO [facility] ENDO SCREENING [id number] 06/21/2017 05:41:00 017 10:53:00 DIS Outpatient DADA PHAM DO [facility] PREOP COLONOSCOPY
== END 2020-02-21 21:53 | disposition home or self-care (01) ==
LOC: EDUNIT# 20:32 → ER 20:33
DX: S61.317A Laceration without foreign body of left little finger with damage to nail, initial encounter (principal); S61.213A Laceration without foreign body of left middle finger without damage to nail, initial encounter; F17.210 Nicotine dependence, cigarettes, uncomplicated; Y92.69 Other specified industrial and construction area as the place of occurrence of the external cause; W20.8XXA Other cause of strike by thrown, projected or falling object, initial encounter
CPT/HCPCS: 12001; 29130; 73140

== ENCOUNTER 2020-03-07 11:26 | Emergency (ER) | payer OTHER ==
[~2020-03-07] VITALS: Ht 176 cm; Wt 99.8 kg
[~2020-03-07 11:26] MED LIST changes: +CEPH-507 PO
[2020-03-07 11:35] VITALS: BP 139/76
--- OUTSIDE RECORDS SUMMARY | 2020-03-07 12:23 | XMS REPORT | Continuity of Care Document ---
Author Organization Unknown Address Unknown Phone Unavailable Allergies Active Description Code Type Severity Reaction Onset Reported/Identified Relationship to Patient Clinical Status Yes No Known Drug Allergies [id number] Drug Allergy Unknown N/A 06/21/2017 Medications There [...] MASS INDEX (BMI) 31.0-31.9, ADULT 07/05/2017 DADA PAHM DO Ot Z79.899 OTHER LONG-TERM (CURRENT) DRUG THERAPY 07/18/2017 DADA PHAM DO [...] 07/18/2017 DADA PHAM DO Ot Z79.899 OTHER LONG-TERM (CURRENT) DRUG THERAPY 11/13/2017 ABRAHAM JEFFERSON MDUS [...] R07.89 OTHER CHEST PAIN 11/08/2018 PETE RIOS FAC, ALI FACP CCDS Ot Z72.0 TOBACCO USE 01/29/2019 PETE MD FACC, ALI FACP CCDS Ot E66.9 OBESITY, UNSPECIFIED 01/29/2019 PETE MD FACC, ALI FACP CCDS Ot R06.02 SHORTNESS OF BREATH 01/29/2019 PETE FACC, ALI FACP CCDS Ot R07.89 OTHER CHEST PAIN 01/29/2019 PETE MD FACC, ALI FACP CCDS Ot Z72.0 TOBACCO USE 01/29/2019 PETE MD FACC, ALI FACP CCDS Ot E66.9 OBESITY, UNSPECIFIED 01/29/2019 PETE MD FACC, ALI FACP CCDS Ot R06.02 SHORTNESS OF BREATH 01/29/2019 PETE RIOS FAC, ALI FACP CCDS Ot R07.89 OTHER CHEST PAIN 01/29/2019 PETE MD FAC, ALI FACP CCDS Ot Z72.0 TOBACCO USE 01/31/2019 SARAH LEIGH MD R Ot F17.210 NICOTINE DEPENDENCE, CIGARETTES, UNCOMPL 01/31/2019 SARAH LEIGH MD R Ot Z12. 2 ENCNTR SCREEN FOR MALIGNANT NEOPLASM OF 02/21/2020 YENNY BEATTY MD Ot F17.210 NICOTINE DEPENDENCE, CIGARETTES, UNCOMPL 02/21/2020 YENNY BEATTY MD Ot M79.645 PAIN IN LEFT FINGER(S) 02/21/2020 YENNY BEATTY MD Ot S61.213A LACERATION W/O FB OF L MID FINGER W/O DA 02/21/2020 YENNY BEATTY MD Ot S61.317A LACERATION W/O FB OF L LITTLE FINGER W D 02/21/2020 YENNY BEATTY MD Ot W20.8XXA OT CAUSE OF STRIKE BY THROWN, PROJECTED 02/21/2020 YENNY BEATTY MD Ot Y92. 69 OT INDUSTRIAL AND CONSTRUCTION AREA 02/25/2020 YENNY BEATTY MD Ot F17.210 NICOTINE DEPENDENCE, CIGARETTES, UNCOMPL 02/25/2020 YENNY BEATTY MD Ot M79.645 PAIN IN LEFT FINGER(S) 02/25/2020 YENNY BEATTY MD Ot S61.213A LACERATION W/O FB OF L MID FINGER W/O DA 02/25/2020 YENNY BEATTY MD Ot S61.317A LACERATION W/O FB OF L LITTLE FINGER W D 02/25/2020 YENNY BEATTY MD, Ot W20.8XXA OT CAUSE OF STRIKE BY THROWN, PROJECTED 02/25/2020 YENNY BEATTY MD, Ot Y92. 69 OT INDUSTRIAL AND CONSTRUCTION AREA Procedures There is no data. Results Test [...] plasma troponin i.cardiac measu rement (mass/volume) - 04/01/18 20:22 Serum or plasma troponin i.cardiac measurement (mass/v olume) < ng/mL <0.30 Myoglobin, serum - 11/13/17 20:22 Myoglobin, serum 36.6 ng/mL 10.0-92.0 Encounters ACCT No. Visit Date/Time Discharge Status Pt. Type Provider Facility Loc./Unit Complaint [id number] 02/21/2020 20:33:00 21:53:00 DIS Emergency YENNY BEATTY MD [facility] ER L HAND 5TH FINGER LAC [id number] 08/02/2019 20:00:00 23:59:59 CLS Preadmit SARAH LEIGH MD [facility] SLEEP CENTRAL SLEEP APNEA [id number] 01/29/2019 12:45:00 23:59:59 CLS Outpatient SARAH LEIGH MD [facility] RAD ANNUAL LUNG SCREENING [id number] 11/08/2018 12:10:00 019 23:59:59 CLS Preadmit SARAH LEIGH MD [facility] RAD SOB [id number] 12/14/2017 11:16:00 23:59:59 CLS Outpatient JANET FREEMAN MD, FACC, FACP CC DS [facility] CARD CHEST DISCO ORT [id number] 11/29/2017 07:38:00 018 23:59:59 CLS Outpatient JANET FREEMAN MD, FACC, FACP CC DS [facility] CARD CHEST DISCO MFORT [id number] 11/13/2017 19:03:00 018 21:26:00 DIS Emergency ALVIN JEFFERSON MD [facility] ER COUGHING,CHEST PAIN [id number] 07/05/2017 13:04:00 017 15:55:00 DIS Outpatient DADA PHAM DO [facility] ENDO SCREENING [id number] 06/21/2017 05:41:00 017 10:53:00 DIS Outpatient DADA PHAM DO [facility] PREOP COLONOSCOPY
== END 2020-03-07 11:41 | disposition home or self-care (01) ==
LOC: EDUNIT# 11:26 → ER 11:28
DX: S61.217D Laceration without foreign body of left little finger without damage to nail, subsequent encounter (principal); X58.XXXD Exposure to other specified factors, subsequent encounter
CPT/HCPCS: 99281